=== PATIENT | female | born 1990 | race Caucasian/White ===

== ENCOUNTER 2016-08-23 09:53 | Emergency (ER) | payer MEDICAID ==
[~2016-08-23] VITALS: Ht 154.9 cm; Wt 76.7 kg
[2016-08-23 14:41] VITALS: BP 136/77
== END 2016-08-23 14:41 | disposition home or self-care (01) ==
LOC: ED 09:53
DX: J30.9 Allergic rhinitis, unspecified (principal); B34.9 Viral infection, unspecified; I10 Essential (primary) hypertension; Z79.899 Other long term (current) drug therapy
CPT/HCPCS: J1885; J7613; J7644

== ENCOUNTER 2017-01-13 06:32 | Emergency (ER) | payer MEDICAID ==
[2017-01-13 07:28] LABS: BASOPHIL % 0.4 % (0-2); PLATELET COUNT 266 x10^3mcL (130-400); RED CELL DISTRIBUTION WIDTH 13.2 % (11.5-14.5)
[2017-01-13 07:33] LABS: ALKALINE PHOSPHATASE 56 U/L (46-116); ALT/SGPT 17 U/L (14-59); AST/SGOT 13 U/L (15-37); BILIRUBIN TOTAL 0.2 mg/dL (0.20-1.00); CARBON DIOXIDE 24.8 mmol/L (21-32); CHLORIDE SERUM 103 mmol/L (98-107); CREATININE SERUM 0.6 mg/dL (0.6-1.0); GFR1 > 60 mL/min; GLUCOSE SERUM 84 mg/dL (74-106); LIPASE 71 IU/L (73-393); POTASSIUM SERUM 3.9 mmol/L (3.5-5.1); SODIUM SERUM 136 mmol/L (136-145); TOTAL PROTEIN, SERUM 6.8 g/dL (6.4-8.2)
[2017-01-13 08:01] LABS: CALCIUM 8.5 mg/dL (8.5-10.1)
[2017-01-13 08:31] LABS: microscopic required? YES
[2017-01-13 08:32] LABS: urine erythrocyte TRACE (NEGATIVE)
[2017-01-13 09:53] VITALS: BP 139/76
== END 2017-01-13 09:53 | disposition home or self-care (01) ==
LOC: ED 06:32
PROVIDERS: Emergency Medicine
DX: N39.0 Urinary tract infection, site not specified (principal); I10 Essential (primary) hypertension; Z33.1 Pregnant state, incidental; Z90.49 Acquired absence of other specified parts of digestive tract
CPT/HCPCS: J2405; J7030

== ENCOUNTER 2017-01-19 07:32 | Emergency (ER) | payer MEDICAID ==
[~2017-01-19] VITALS: Ht 154.9 cm; Wt 72.1 kg
[2017-01-19 09:47] VITALS: BP 115/75
== END 2017-01-19 09:47 | disposition home or self-care (01) ==
LOC: ED 07:32
DX: O26.891 Other specified pregnancy related conditions, first trimester (principal); Z3A.00 Weeks of gestation of pregnancy not specified
CPT/HCPCS: J2550; J7030

== ENCOUNTER 2017-07-05 08:23 | Emergency (ER) | payer MEDICAID ==
[~2017-07-05] VITALS: Ht 154.9 cm; Wt 69.8 kg
[2017-07-05 08:31] VITALS: Ht 154.9 cm; Wt 69.8 kg
[2017-07-05 10:46] VITALS: BP 143/98
== END 2017-07-05 10:46 | disposition short-term general hospital (02) ==
LOC: ED 08:23
DX: O9A.213 Injury, poisoning and certain other consequences of external causes complicating pregnancy, third trimester (principal); R10.9 Unspecified abdominal pain; I10 Essential (primary) hypertension; Z90.49 Acquired absence of other specified parts of digestive tract; Z3A.36 36 weeks gestation of pregnancy
CPT/HCPCS: Q0092

== ENCOUNTER 2018-10-12 05:46 | Emergency (ER) | payer MEDICAID ==
[~2018-10-12] VITALS: Ht 154.9 cm; Wt 83.3 kg
[2018-10-12 05:50] VITALS: Ht 154.9 cm; Wt 83.3 kg
[2018-10-12 09:11] VITALS: BP 138/78
== END 2018-10-12 09:48 | disposition home or self-care (01) ==
LOC: ED 05:46
DX: M43.06 Spondylolysis, lumbar region (principal); I10 Essential (primary) hypertension; Z90.49 Acquired absence of other specified parts of digestive tract; V49.9XXA Car occupant (driver) (passenger) injured in unspecified traffic accident, initial encounter; Y93.I9 Activity, other involving external motion; Y92.413 State road as the place of occurrence of the external cause; Y99.8 Other external cause status
CPT/HCPCS: 72072; J1885